=== PATIENT | male | born 1930 | race Caucasian/White ===

== ENCOUNTER 2016-11-04 17:39 | Emergency (ER) | payer MEDICARE ==
--- NOTE | ~2016-11-04 | CR71 ---
[facility] A Service of [facility] RADIOLOGY TEXT RESULTS PATIENT: RIGOBERTO MAKI LOCATION: [facility] : 30 UNIT #: [id number] AGE: [address]: Aysha Gasca MD SEX: M ORDER DR: [id number] [facility] [address] [place], [place] [address] [id number] E MR#: [id number] Acc #: [id number] NAME: RIGOBERTO MAKI : 1930 SEX: M STUDY DATE/TIME: 11/04/2016 17:51 UNIT: [facility] ROOM: STUDY DESCRIPTION: CR Chest Single View Attending Physician: Aysha Gasca M.D. Referring Physician: Jose L Lyon M.D. Ordering Physician: Aysha Gasca M.D. Primary Care Physician: Jose L Lyon M.D. MEDICAL IMAGING REPORT This report is preliminary unless electronic signature is present EXAM AP portable chest 11/04/2016 HISTORY 86-year-old male in the ED after a fall today prior to arrival. Possible syncopal episode. He complains of shortness of air. TECHNIQUE AP portable chest x-ray. FINDINGS The exam shows no active disease in the chest. Postop changes cardiac surgery including mitral valve replacement. Heart size and pulmonary vascularity are normal. 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 No acute pulmonary infiltrate, pneumothorax or pleural effusion. Benign calcified granuloma right lung base. No change since 07/13/2012. IMPRESSION No active disease. Mitral valve replacement. Dictated by... Kehinde Staley M.D. THIS IS AN ELECTRONICALLY VERIFIED REPORT Kehinde Staley M.D. at 11/07/2016 5:58 AM CLAIRE/randi TD: 11/05/2016 10:48 JOB #: [id number] MEDICAL IMAGING REPORT [facility] A Service of [facility] RADIOLOGY TEXT RESULTS PATIENT: RIGOBERTO MAKI LOCATION: [facility] : 30 UNIT #: [id number] AGE: [address]: Aysha Gasca MD SEX: M ORDER DR: Page 1 of 1 COPY
--- NOTE | ~2016-11-04 | EKG ---
PATIENT: RIGOBERTO MAKI UNIT #: [id number] Ventricular Rate: 59 BPM Atrial Rate: 59 BPM P-R Interval: 250 ms QRS Duration: 174 ms Q-T Interval: 536 ms QTC Calculation(Bezet): 530 ms P Montgomery: 84 degrees Calculated R Montgomery: 107 degrees Calculated T Montgomery: 22 degrees Diagnosis Line: Sinus bradycardia with 1st degree A-V block with Diagnosis Line: Premature ventricular complexes Diagnosis Line: Rightward axis Diagnosis Line: Non-specific intra-ventricular conduction block Diagnosis Line: Abnormal ECG Diagnosis Line: When compared with ECG of 20-JAN-2015 10:12, Diagnosis Line: Premature ventricular complexes are now Present Diagnosis Line: Non-specific intra-ventricular conduction block Diagnosis Line: has replaced Right bundle branch block Diagnosis Line: Confirmed by EAGLE MASTERS MD ([id number]) on 11/06/2016 Diagnosis Line: 7:07:27 AM INTERPRETING MD: SONAM BRANNON
--- NOTE | ~2016-11-04 | CT52 ---
[facility] A Service of [facility] RADIOLOGY TEXT RESULTS PATIENT: RIGOBERTO MAKI LOCATION: [facility] : 30 UNIT #: [id number] AGE: [address]: Aysha Gasca MD SEX: M ORDER DR: [id number] [facility] [address] [place], [place] [address] [id number] E MR#: [id number] Acc #: [id number] NAME: RIGOBERTO MAKI : 1930 SEX: M STUDY DATE/TIME: 11/04/2016 18:56 UNIT: [facility] ROOM: STUDY DESCRIPTION: CT Cervical Spine Wo Cont Attending Physician: Aysha Gasca M.D. Referring Physician: Jose L Lyon M.D. Ordering Physician: Aysha Gasca M.D. Primary Care Physician: Jose L Lyon M.D. MEDICAL IMAGING REPORT This report is preliminary unless electronic signature is present EXAM CT cervical spine, 11/04/2016. HISTORY 86-year-old male in the ED after head injury. Fell earlier today with contusion and pain to the back of the head. Bilateral hand abrasions. TECHNIQUE Thin-section axial CT images were obtained from the skull base through the mid portion of T2. Sagittal and coronal images were reconstructed. This CT exam was performed with one or more of the following radiation dose reduction techniques: automatic exposure control, adjustment of mA and/or kV according to patient size, and iterative reconstruction. FINDINGS No fracture or other acute osseous abnormality is demonstrated. Severe degenerative disc space changes are present at C3-4 with [id number] degenerative disc space narrowing throughout the remainder of the cervical spine. Advanced multilevel degenerative facet arthropathy is present bilaterally throughout the cervical spine, but cervical vertebral alignment is normal. [id number] multilevel degenerative central canal narrowing and bilateral neural foraminal stenosis. IMPRESSION 1. No fracture or other acute osseous abnormality. 2. 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 Dictated by... Kehinde Staley M.D. THIS IS AN ELECTRONICALLY VERIFIED REPORT Kehinde Staley M.D. at 11/07/2016 5:58 AM [facility] A Service of [facility] RADIOLOGY TEXT RESULTS PATIENT: RIGOBERTO MAKI LOCATION: [facility] : 30 UNIT #: [id number] AGE: [address]: Aysha Gasca MD SEX: M ORDER DR: Yolanda TD: 11/05/2016 13:14 JOB #: [id number] MEDICAL IMAGING REPORT Page 1 of 1 COPY
--- NOTE | ~2016-11-04 | CT71 ---
[facility] A Service of [facility] RADIOLOGY TEXT RESULTS PATIENT: RIGOBERTO MAKI LOCATION: [facility] : 30 UNIT #: [id number] AGE: [address]: Aysha Gasca MD SEX: M ORDER DR: [id number] [facility] [address] [place], [place] [address] [id number] E MR#: [id number] Acc #: [id number] NAME: RIGOBERTO MAKI : 1930 SEX: M STUDY DATE/TIME: 11/04/2016 18:51 UNIT: [facility] ROOM: STUDY DESCRIPTION: CT Head Wo Contrast Attending Physician: Aysha Gasca M.D. Referring Physician: Jose L Lyon M.D. Ordering Physician: Aysha Gasca M.D. Primary Care Physician: Jose L Lyon M.D. MEDICAL IMAGING REPORT This report is preliminary unless electronic signature is present EXAM CT head without contrast dated 11/04/2016. COMPARISON CT head without contrast dated 07/13/2012. HISTORY Contusion to the back of the head from fall today. Skin tears on the left wrist and right hand. TECHNIQUE This CT exam was performed with one or more of the following radiation dose reduction techniques: automatic exposure control, adjustment of mA and/or kV according to patient size, and iterative reconstruction. FINDINGS CT of the head was obtained without contrast in the axial plane as per the protocol. No acute intracranial hemorrhage, hydrocephalus or midline shift. There is prominence of CSF around the cerebellar hemispheres in the posterior fossa and in bifrontal region, particularly in the left side. It is slightly worse when compared to the prior study from 5 years ago, but it does not cause any significant mass effect on the nearby brain parenchyma or midline shift. S-shaped nasal septal deviation is noted. Paranasal sinuses are well aerated, except for mild mucosal thickening in the small left sphenoid sinus. Mastoid air cells are also well aerated. Orbits with the ocular structures do not demonstrate any significant abnormality. Status post bilateral cataract surgery. IMPRESSION 1. No acute intracranial hemorrhage, hydrocephalus or midline shift. 2. There is slightly prominent CSF along the surface of the brain and particularly the left frontal region and to a lesser degree in the right frontal region. It could be related to parenchymal volume loss [facility] A Service of [facility] RADIOLOGY TEXT RESULTS PATIENT: RIGOBERTO MAKI LOCATION: [facility] : 30 UNIT #: [id number] AGE: [address]: Aysha Gasca MD SEX: M ORDER DR: as seen in the posterior fossa. Thin subdural chronic hygromas are lower in the differential diagnosis. No obvious acute hemorrhage is seen. 3. No acute fracture. Dictated by... Effie Benson M.D. THIS IS AN ELECTRONICALLY VERIFIED REPORT Effie Benson M.D. at 11/07/2016 1:39 PM CPR/pc TD: 11/05/2016 13:31 JOB #: [id number] MEDICAL IMAGING REPORT Page 1 of 1 COPY
--- NOTE | ~2016-11-04 | CR141 ---
[facility] A Service of [facility] RADIOLOGY TEXT RESULTS PATIENT: RIGOBERTO MAKI LOCATION: [facility] : 30 UNIT #: [id number] AGE: [address]: Aysha Gasca MD SEX: M ORDER DR: [id number] [facility] [address] [place], [place] [address] [id number] E MR#: [id number] Acc #: [id number] NAME: RIGOBERTO MAKI : 1930 SEX: M STUDY DATE/TIME: 11/04/2016 17:58 UNIT: [facility] ROOM: STUDY DESCRIPTION: CR Hand Min 3 Views Lt Attending Physician: Aysha Gasca M.D. Referring Physician: Jose L Lyon M.D. Ordering Physician: Aysha Gasca M.D. Primary Care Physician: Jose L Lyon M.D. MEDICAL IMAGING REPORT This report is preliminary unless electronic signature is present EXAM Left hand series 11/04/2016 HISTORY 86-year-old male in the ED with bilateral hand pain and skin abrasions after a fall today prior to arrival. TECHNIQUE 3 view left hand series. FINDINGS No fracture, dislocation or other acute osseous abnormality is demonstrated. Minimal degenerative changes, greatest at the second PIP joint. IMPRESSION 1. No acute osseous abnormality. 2. Mild degenerative arthropathy. Dictated by... Kehinde Staley M.D. THIS IS AN ELECTRONICALLY VERIFIED REPORT Kehinde Staley M.D. at 11/07/2016 5:58 AM CLAIRE/randi TD: 11/05/2016 10:53 JOB #: [id number] MEDICAL IMAGING REPORT Page 1 of 1 COPY
--- NOTE | ~2016-11-04 | CR142 ---
[facility] A Service of [facility] RADIOLOGY TEXT RESULTS PATIENT: RIGOBERTO MAKI LOCATION: [facility] : 30 UNIT #: [id number] AGE: [address]: Aysha Gasca MD SEX: M ORDER DR: [id number] [facility] [address] [place], [place] [address] [id number] E MR#: [id number] Acc #: [id number] NAME: RIGOBERTO MAKI : 1930 SEX: M STUDY DATE/TIME: 11/04/2016 18:03 UNIT: [facility] ROOM: STUDY DESCRIPTION: CR Hand Min 3 Views Rt Attending Physician: Aysha Gasca M.D. Referring Physician: Jose L Lyon M.D. Ordering Physician: Aysha Gasca M.D. Primary Care Physician: Jose L Lyon M.D. MEDICAL IMAGING REPORT This report is preliminary unless electronic signature is present EXAM Right hand series 11/04/2016 HISTORY 86-year-old male in the ED with bilateral hand pain and soft tissue abrasions after a fall today prior to arrival. TECHNIQUE 3 view right hand series. FINDINGS No fracture, dislocation or other acute osseous abnormality is identified. Mild degenerative arthropathy is noted, greatest at the second and third DIP joints. IMPRESSION 1. No acute osseous abnormality. 2. Mild degenerative arthropathy. Dictated by... Kehinde Staley M.D. THIS IS AN ELECTRONICALLY VERIFIED REPORT Kehinde Staley M.D. at 11/07/2016 5:58 AM CLAIRE/randi TD: 11/05/2016 10:58 JOB #: [id number] MEDICAL IMAGING REPORT Page 1 of 1 COPY
[~2016-11-04 17:39] MED LIST: AMIODARONE PO; ASPIRIN81 M1 PO; ASPIRINEC PO; COREG; COREG6.25 MG PO; COUMADIN5 MG PO; DOCU SOFT100 M1 PO; IRON1 TA1 PO; K-DUR20 ME2 PO; LASIX PO; LIPITOR PO; LISINOPRIL PO; LOTREL 10/20 MG1 CAP PO; MIRALAX17 GM PO; OMEPRAZOLE20 M1 PO; TOPROL XL PO
[2016-11-04 18:09] LABS: BASOPHIL# 0.1 X10e3 (0-0.3); BASOPHIL% 1.2 % (0-2.5); DIFF IND NO; EOSINOPHIL# 0.2 X10e3 (0-0.7); EOSINOPHIL% 1.4 % (0.0-7.0); HEMATOCRIT 39.3 % (38.0-50.0); HEMOGLOBIN 12.6 gm/dL (13.0-16.0); LYMPHOCYTE% 17.2 % (17.0-45.0); MEAN CELL VOLUME 94.3 FL (83-96); MEAN CORPUSCULAR HEMOGLOBIN 30.3 PG (28-34); MEAN CORPUSCULAR HGB CONC 32.1 g/dL (30-36); MEAN PLATELET VOLUME 11.2 FL (6.5-11.5); MONOCYTE# 0.8 X10e3 (0-1.0); NEUTROPHIL# 8.6 X10e3 (1.5-7.1); NEUTROPHIL% 73.2 % (40-75); PLATELET COUNT 130 X10e3 (140-420); RED BLOOD COUNT 4.17 X10e (3.90-5.60); RED CELL DISTRIBUTION WIDTH 15.2 % (11.0-15.5); WHITE BLOOD COUNT 11.8 X10e3 (4.0-10.5)
[2016-11-04 18:21] LABS: PARTIAL THROMBOPLASTIN TIME 29.3 SECONDS (23.5-31.3)
[2016-11-04 18:31] LABS: ALBUMIN SERUM 4.5 g/dL (3.5-5.0); BILIRUBIN, DIRECT 0.2 mg/dL (0.0-0.2); BILIRUBIN,TOTAL 1.2 mg/dL (0.2-2.0); CALCIUM SERUM 9.2 mg/dL (8.4-10.2); GLOM FILT RATE Estimated 67.9 mL/min (>60); POTASSIUM 4.4 mmol/L (3.5-5.1); PROTEIN TOTAL SERUM 6.9 g/dL (6.0-8.3)
[2016-11-04 19:01] LABS: POC - CKMB <1.0 ng/mL (0.0-7.9); POC - TROPONIN <0.05 ng/mL (<=0.05)
== END 2016-11-04 19:54 | disposition home or self-care (01) ==
LOC: CED 17:39
PROVIDERS: Student in an Organized Health Care Education/Training Program
DX: S61.412A Laceration without foreign body of left hand, initial encounter (principal); S61.411A Laceration without foreign body of right hand, initial encounter; R55 Syncope and collapse; F10.129 Alcohol abuse with intoxication, unspecified; Z88.0 Allergy status to penicillin; W18.30XA Fall on same level, unspecified, initial encounter; Y92.009 Unspecified place in unspecified non-institutional (private) residence as the place of occurrence of the external cause
CPT/HCPCS: 36415; 70450; 71010; 72125; 73130; 80048; 80076; 82553; 84484; 85025; 85610; 85730; 93005; 96360; 99284; G0480